=== PATIENT | female | born 1970 | race Caucasian/White ===

== ENCOUNTER → 2017-02-28 | Outpatient (CLI) | payer OTHER ==
[~2017-02-28] MED LIST: ANTICRE6; CEPH500C PO; CLR10 PO
== END | disposition home or self-care (01) ==
LOC: C.PAPS 15:04
PROVIDERS: ATTEND Obstetrics & Gynecology
DX: Z12.4 Encounter for screening for malignant neoplasm of cervix (principal)

== ENCOUNTER → 2017-04-11 | Outpatient (CLI) | payer OTHER ==
[2017-04-11 13:12] LABS: BASO % 1.5 %; BASO ABS # 0.13 K/uL (0-0.2); COMPLETE YES; EOS % 1.8 %; HEMATOCRIT 42.7 % (37-47); IG% 0.1 %; LYMPH % 28.9 %; LYMPH ABS # 2.44 K/uL (1.2-3.4); MEAN CELL VOLUME 94.9 fL (80-100); MEAN CORPUSCULAR HEMOGLOBIN 32.2 pg (25-34); MEAN PLATELET VOLUME 10.2 fL (7.4-10.4); MONO % 9.5 %; NEUT % 58.2 %; PLATELET COUNT 308 K/uL (130-400); WHITE BLOOD COUNT 8.44 K/uL (4.8-10.8)
== END | disposition home or self-care (01) ==
LOC: C.LAB 11:30
PROVIDERS: ATTEND Obstetrics & Gynecology
DX: Z01.812 Encounter for preprocedural laboratory examination (principal)